=== PATIENT | female | born 1985 | race Two or more races ===

== ENCOUNTER 2023-12-24 13:57 | Emergency (ER) | payer OTHER ==
[2023-12-24] MEDS: Sodium Chloride 0.9% 1,000 ML IV ONE (14:29)
[2023-12-24] MEDS: Ketorolac 15 MG/ML SDV IVPUSH ONE (14:39)
[2023-12-24] MEDS: diphenhydrAMINE 50 MG/ML SDV IVPUSH ONE (14:40)
[2023-12-24] MEDS: Dihydroergotamine 1 MG/ML SDV IVPUSH ONE (14:42)
[2023-12-24] MEDS: Metoclopramide 10 MG/2 ML SDV IVPUSH ONE (14:44)
[2023-12-24] MEDS: Dihydroergotamine 1 MG/ML SDV SUBCUT ONE (14:45)
[2023-12-24 16:07] VITALS: BP 121/89; PULSE 82
== END 2023-12-24 16:05 | disposition home or self-care (01) ==
LOC: JP.ED 13:57
DX: G43.909 Migraine, unspecified, not intractable, without status migrainosus (principal); Z88.5 Allergy status to narcotic agent; Z88.8 Allergy status to other drugs, medicaments and biological substances; Z79.899 Other long term (current) drug therapy
CPT/HCPCS: 96361; 96374; 96375; 99283; 99283-25; J1110; J1200; J1885; J2765; J7030